=== PATIENT | female | born 1940 | race Caucasian/White ===

== ENCOUNTER 2017-07-05 08:43 | Outpatient (CLI) | payer MEDICARE, MEDICAID ==
[2017-07-05] MEDS ORDERED: BARIUM SULFATE 135 ML SUSP.RECON (E-Z-HD) PO ONE (09:00)
== END 2017-07-05 20:13 | disposition home or self-care (01) ==
LOC: SRD 08:43
PROVIDERS: ATTEND Otolaryngology Plastic Surgery within the Head & Neck
DX: R13.10 Dysphagia, unspecified (principal)
CPT/HCPCS: 74220-TC